=== PATIENT | male | born 1930 | race Caucasian/White ===

== ENCOUNTER 2016-06-17 19:13 | Emergency (ER) | payer OTHER ==
[2016-06-17 19:23] VITALS: RESP 16
--- NOTE | 2016-06-17 19:40 | CPEKG ---
Heart Rate: 94 RR Interval: 638 QRSD Interval: 104 QT Interval: 376 QTC Interval: 471 QRS [place]: -50 T Wave [place]: 7 EKG Severity - ABNORMAL ECG - EKG Impression: ATRIAL FIBRILLATION, V-RATE 69-108 EKG Impression: INCOMPLETE RBBB AND LAFB EKG Impression: BORDERLINE R WAVE PROGRESSION, ANTERIOR LEADS Electronically Signed By: Pam Hernandez 17-Jun-2016 22:29:50
--- NOTE | 2016-06-17 20:02 | EDPHY ---
H & P Time Seen by Provider: 06/17/16 19:41 HPI/ROS: CHIEF COMPLAINT: High blood pressure, chest pain HISTORY OF PRESENT ILLNESS: 85-year-old male with a history of hypertension and coronary artery disease presents with high blood pressure and chest pain. At 1:00 p.m., he checked his blood pressure and it was higher than usual, with a systolic blood pressure in the 160s. He became very concerned because he has a history of extreme hypertension and related retinal hemorrhage. He began worrying about this and then developed a vague left-sided chest discomfort, rated 2/10. Discomfort in his chest lasted until now. No change with exertion and no other associated symptoms. Not similar to prior acute coronary syndrome, which consisted of severe chest pain and diaphoresis. REVIEW OF SYSTEMS: Constitutional: No fever, no chills Eyes: No visual changes ENT: No sore throat Respiratory: No cough, no shortness of breath Gastrointestinal: No nausea, no vomiting, no abdominal pain Genitourinary: No hematuria, no dysuria Musculoskeletal: No leg pain or swelling Skin: No rash Neurological: No headache, no numbness, no weakness Psychiatric: Anxiety Past Medical/Surgical History: Hypertension Coronary artery disease Retinal hemorrhage Atrial fibrillation Social History: No recent alcohol Smoking Status: Never smoked Physical Exam: General Appearance: Alert, pleasant Eyes: Pupils equal and round, no conjunctival pallor or injection ENT, Mouth: Mucous membranes moist Neck: Normal inspection Respiratory: no chest wall tenderness, Lungs are clear to auscultation Cardiovascular: Regular rate and rhythm Gastrointestinal: Abdomen is soft and nontender Neurological: A&O, nonfocal, normal gait Skin: Warm and dry, no rash Extremities: Nontender, no pedal edema Psychiatric: Mood and affect normal Constitutional: Initial Vital Signs Temperature (C) 36.4 C 06/17/16 19:17 Heart Rate 78 06/17/16 19:17 Respiratory Rate 16 06/17/16 19:17 Blood Pressure 168/95 H 06/17/16 19:17 O2 Sat (%) 95 06/17/16 19:17 O2 Delivery Mode Room Air Allergies/Adverse Reactions: No Known Allergies Allergy (Unverified 06/17/16 19:17) Home Medications: Medication Instructions Recorded Atorvastatin Calcium 06/17/16 Carvedilol 06/17/16 Lisinopril 06/17/16 Lumigan 0.01% (*) 06/17/16 Warfarin Sodium 06/17/16 Medical Decision Making - Diagnostics EKG Interpretation: erpreted byMe reveals atrial fibrillation, rate 94, no ST or T segment changes. Imaging: Chest x-ray independently reviewed by me reveals cardiomegaly, no infiltrate or pulmonary edema. ED Course/Re-evaluation: This patient presents with a primary concern of elevated blood pressure. He became quite worried because his blood pressure was slightly high. 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 His systolic blood pressure is usually 110-120 and today it was higher than usual at 160. After his blood pressure was elevated, he began having chest pain, which is really quite mild. Stat EKG reveals no evidence of ischemia or dysrhythmia. I have low clinical suspicion for acute coronary syndrome. However given the advanced age and known history of coronary artery disease, troponin was ordered. Admission was advised for the patient. However he declines and understands that I am unable to tell him if the chest pain is related to a heart attack or not. He is pain free on discharge from the emergency department. He was encouraged to return for recurrent symptoms or any concerns. Differential Diagnosis: Differential diagnosis includes though it is not limited to pneumonia, pneumothorax, pulmonary embolism, aortic dissection, pericarditis, acute coronary syndrome. - Data Points Laboratory Results: Laboratory Results 06/17/16 20:20 06/17/16 20:20 06/17/16 20:20 WBC 5.28 10^3/uL (3.80-9.50) RBC 4.15 L 10^6/uL (4.40-6.38) Hgb 13.4 L g/dL (13.7-17.5) Hct 39.6 L % (40.0-51.0) MCV 95.4 fL (81.5-99.8) MCH 32.3 pg (27.9-34.1) MCHC 33.8 g/dL (32.4-36.7) RDW 15.4 H % (11.5-15.2) Plt Count 123 L 10^3/uL (150-400) MPV 10.8 fL (8.7-11.7) Neut % (Auto) 54.9 % (39.3-74.2) Lymph % (Auto) 26.3 % (15.0-45.0) Mccone % (Auto) 11.6 % (4.5-13.0) Eos % (Auto) 6.1 % (0.6-7.6) Baso % (Auto) 0.9 % (0.3-1.7) Nucleat RBC Rel Count 0.0 % (0.0-0.2) Absolute Neuts (auto) 2.90 10^3/uL (1.70-6.50) Absolute Lymphs (auto) 1.39 10^3/uL (1.00-3.00) Absolute Monos (auto) 0.61 10^3/uL (0.30-0.80) Absolute Eos (auto) 0.32 10^3/uL (0.03-0.40) Absolute Basos (auto) 0.05 10^3/uL (0.02-0.10) Absolute Nucleated RBC 0.00 10^3/uL (0-0.01) Immature Gran % 0.2 % (0.0-1.1) Immature Gran # 0.01 10^3/uL (0.00-0.10) PT 23.7 H SEC (12.0-15.0) INR 2.10 H (0.83-1.16) D-Dimer < 0.27 ug/mLFEU (0.00-0.50) Sodium 141 mEq/L (134-144) Potassium 4.3 mEq/L (3.5-5.2) Chloride 107 mEq/L (97-110) Carbon Dioxide 25 mEq/l (22-31) Anion Gap 9 mEq/L (8-16) BUN 33 H mg/dL (7-23) Creatinine 1.4 H mg/dL (0.7-1.3) Estimated GFR 48 Glucose 132 H mg/dL (70-100) Calcium 9.1 mg/dL (8.5-10.4) Troponin I < 0.012 ng/mL (0-0.034) NT-Pro-B Natriuret Pep 2530 H pg/mL (0-450) Departure - Departure Disposition: Home, Routine, Self-Care Clinical Impression: Chest pain Qualifiers: Qualifier Code: (R07.89) Other chest pain Condition: Good Instructions: Chest Pain (ED), Hypertension (ED) Referrals: Ej Fritz MD [Primary Care Provider] - As per Instructions
--- NOTE | 2016-06-17 20:23 | DX ---
Chest, PA and Lateral History: Chest pain, high blood pressure, history of atrial fibrillation Comparison: March 23, 2008 Findings: There is chronic cardiomegaly with the heart appearing slightly larger than previously. The re is evidence for chronic left-sided coronary artery disease. The pulmonary vascularity is equalized consistent with pulmonary venous hypertension. There are no pleural effusions or pulmonary edema. Th ere is no focal infiltrate or consolidation. There is no pneumothorax or evidence of a fracture. Ther e is a stable mild pectus excavatum deformity. Impression: 1. Chronic compensated cardiomegaly suggesting underlying ischemic cardiomyopathy.
[2016-06-17 20:30] LABS: % IMMATURE GRANULYOCYTES 0.2 % (0.0-1.1); ABSOLUTE IMMATURE GRANULOCYTES 0.01 10^3/uL (0.00-0.10); ADD DIFF? NO; ADD MORPH? NO; ADD SCAN? NO; ATYPICAL LYMPHOCYTE FLAG 40 (0-99); FRAGMENT RBC FLAG 0 (0-99); HEMATOCRIT 39.6 % (40.0-51.0); HEMOGLOBIN 13.4 g/dL (13.7-17.5); LEFT SHIFT FLG 0 (0-99); LIPEMIA HEMOLYSIS FLAG 90 (0-99); MEAN CELL HEMOGLOBIN 32.3 pg (27.9-34.1); MEAN CELL HEMOGLOBIN CONCENTR. 33.8 g/dL (32.4-36.7); MEAN CELL VOLUME 95.4 fL (81.5-99.8); MEAN PLATELET VOLUME 10.8 fL (8.7-11.7); PLATELET CLUMPS FLAG 30 (0-99); PLATELET COUNT 123 10^3/uL (150-400); RED BLOOD CELL COUNT 4.15 10^6/uL (4.40-6.38); RED CELL DISTRIBUTION WIDTH 15.4 % (11.5-15.2)
[2016-06-17 20:42] LABS: PROTIME(PATIENT) 23.7 SEC (12.0-15.0)
[2016-06-17 20:52] LABS: ANION GAP 9 mEq/L (8-16); CALCIUM 9.1 mg/dL (8.5-10.4); CARBON DIOXIDE 25 mEq/l (22-31); CHLORIDE 107 mEq/L (97-110); CREATININE 1.4 mg/dL (0.7-1.3); GLOMERULAR FILTRATION RATE 48; GLUCOSE 132 mg/dL (70-100); POTASSIUM 4.3 mEq/L (3.5-5.2); SODIUM 141 mEq/L (134-144)
[2016-06-17 21:07] LABS: TROPONIN I < 0.012 ng/mL (0-0.034)
[2016-06-17 21:24] VITALS: BP 130/88; PULSE 83; TEMP 97.7; O2SAT 94
--- NOTE | 2016-06-18 10:21 | CPEKG ---
Heart Rate: 78 RR Interval: 769 P-R Interval: 192 QRSD Interval: 82 QT Interval: 440 QTC Interval: 502 QRS [place]: 33 T Wave [place]: 56 EKG Severity - ABNORMAL ECG - EKG Impression: ATRIAL-PACED RHYTHM EKG Impression: PROLONGED QT INTERVAL Electronically Signed By: Jovanni Luque 18-Jun-2016 13:16:25
[2016-06-18 16:18] LABS: % SATURATION 33 % (20-55); TOTAL IRON BINDING CAPACITY 288 ug/dL (260-490)
== END 2016-06-17 21:23 | disposition home or self-care (01) ==
DX: R07.89 Other chest pain (principal); I10 Essential (primary) hypertension; I25.10 Atherosclerotic heart disease of native coronary artery without angina pectoris; Z79.01 Long term (current) use of anticoagulants
CPT/HCPCS: 82607-90

== ENCOUNTER 2016-07-13 12:16 | Emergency (ER) | payer OTHER ==
--- NOTE | 2016-07-13 13:10 | EDPHY ---
H & P Time Seen by Provider: 07/13/16 12:42 HPI/ROS: HPI Something stuck in my throat. 85-year-old male by private vehicle with his knees. This patient reports that he ate a chicken dinner last night. He reports that he got a piece of chicken stuck in his upper to mid esophagus at about this time, 7:00 p.m.. He has been unable to swallow since then. He is unable to swallow his saliva. He has tried water. He gets very uncomfortable when he takes any kind of a fluid bolus and spit back out. ROS: Constitutional: No fever, no chills. No weakness. Eyes: No discharge. No changes in vision. ENT: No sore throat. No nasal congestion or rhinorrhea. Respiratory: No cough. No shortness of breath. Cardiac: No chest pain, no palpitations. Gastrointestinal: No abdominal pain, no vomiting, no diarrhea. Genitourinary: No hematuria. No dysuria or increased frequency with urination. Musculoskeletal: No back pain. No neck pain. No myalgias or arthralgias. Skin: No rashes. Neurological: No headache. No focal weakness or altered sensation. Past medical history: Hypertension,, coronary artery disease with stents x3. Dr. Ej Fritz is his primary care physician. Dr. Teresa Reagan is his computer installation engineer. Social history: He lives by himself. He is currently here with his knees. Physical Exam: General Appearance: Alert, he appears uncomfortable. Spitting his secretions into a bag. This patient is responding to questions appropriately and in full sentences. This patient appears well-hydrated and well-nourished. Eyes: Pupils equal and round no pallor or injection. No lid edema, erythema or injection. ENT, Mouth: Mucous membranes are moist. The pharyngeal tissues are unremarkable. No edema or swelling. No asymmetry suggestive of abscess. No erythema or exudates. No stridor on auscultation of his neck. Respiratory: There are no retractions, lungs are clear to auscultation with good air movement bilaterally. Cardiovascular: Regular rate and rhythm. No murmur. Neurological: Motor sensory function is grossly intact. Cranial nerves are normal. Gait is normal. Skin: Warm and dry, no rashes. Musculoskeletal: Neck is supple and nontender. Extremities are symmetrical. All joints range without pain or impingement. Psychiatric: No agitation. No depression. Database: EKG: Imaging: Procedures: Emergency department course: Gastroenterology paged at 1:00 p.m.. Discussed endoscopy for removal of esophageal foreign body with patient and his knees. IV was placed. He was started on IV normal saline at a rate of 125 cc/hour. He was initially given 0.5 mg of IV Ativan. This will be repeated x1 based on his tolerance. 1:15 p.m., spoke with rope walker, Dr. Ej Almeida. Plan is to take the patient to endoscopy suite in about an hour. 1:50 p.m., patient re-evaluated. He states that he is feeling much better. He was given a carbonated beverage. He is able to swallow this without difficulty. He denies any symptoms. And states that he feels great. Dr. Ej Almeida notified. Plan will be to discharge him to home. 2:00 p.m., patient continues to do very well. Completely asymptomatic. He feels comfortable going home with his niece and I feel he is safe for discharge. Esophageal food impaction precautions discussed with him. He was instructed to follow up with his primary care physician who could arrange for gastroenterology follow-up as needed. He is in agreement with this plan. All of his questions were answered. Return to emergency department precautions reviewed. He was discharged in good condition. Differential Diagnosis: The differential diagnosis on this patient includes but is not limited to esophageal food bolus, esophageal spasm. This represents a partial list of diagnoses considered. These considerations are based on history, physical exam , past history, reassessment and diagnostic testing. Smoking Status: Never smoked Constitutional: Initial Vital Signs Temperature (C) 36.6 C 07/13/16 12:24 Heart Rate 97 07/13/16 12:24 Respiratory Rate 17 07/13/16 12:24 Blood Pressure 145/95 H 07/13/16 12:24 O2 Sat (%) 91 L 07/13/16 12:24 O2 Delivery Mode Room Air Allergies/Adverse Reactions: No Known Allergies Allergy (Unverified 06/17/16 19:17) Home Medications: Medication Instructions Recorded Atorvastatin Calcium 06/17/16 Carvedilol 06/17/16 Lisinopril 06/17/16 Lumigan 0.01% (*) 06/17/16 Warfarin Sodium 06/17/16 Medical Decision Making - Data Points Medications Given: Discontinued Medications Lorazepam (Ativan Injection) 0.5 mg IVP EDNOW ONE Stop: 07/13/16 13:18 Last Admin: 07/13/16 13:58 Dose: 0.5 mg Departure - Departure Disposition: Home, Routine, Self-Care Clinical Impression: Impacted esophageal foreign body Condition: Good Instructions: Esophageal Foreign Body (ED) Additional Instructions: Read and follow provided instructions. Follow-up with your primary care physician , Dr. Ej Fritz, in 1-2 days for re-evaluation. He can refer you to a rope walker as needed. Return to the emergency department for return of symptoms or other serious concerns. Referrals: Ej Fritz MD [Primary Care Provider] - As per Instructions
[2016-07-13] MEDS ORDERED: LORazepam 2 MG/ML INJ IVP ONE (13:17)
[2016-07-13 14:26] VITALS: BP 128/78; PULSE 70; RESP 14; TEMP 98.4; O2SAT 94
== END 2016-07-13 14:26 | disposition home or self-care (01) ==
DX: T18.128A Food in esophagus causing other injury, initial encounter (principal); I10 Essential (primary) hypertension; I25.10 Atherosclerotic heart disease of native coronary artery without angina pectoris; Z79.01 Long term (current) use of anticoagulants; Z95.5 Presence of coronary angioplasty implant and graft; X58.XXXA Exposure to other specified factors, initial encounter
CPT/HCPCS: 96374

== ENCOUNTER → 2016-11-21 | Outpatient (CLI) | payer OTHER | LOC: BHFA 15:30 | PROVIDERS: ATTEND Internal Medicine Cardiovascular Disease | DX: I35.2 Nonrheumatic aortic (valve) stenosis with insufficiency (principal); I71.6 Thoracoabdominal aortic aneurysm, without rupture; I25.10 Atherosclerotic heart disease of native coronary artery without angina pectoris ==

== ENCOUNTER → 2017-01-09 | Outpatient (CLI) | payer OTHER | LOC: BHFA 10:15 | PROVIDERS: ATTEND Internal Medicine Cardiovascular Disease | DX: I50.9 Heart failure, unspecified (principal); I08.0 Rheumatic disorders of both mitral and aortic valves; I07.1 Rheumatic tricuspid insufficiency; I25.10 Atherosclerotic heart disease of native coronary artery without angina pectoris; I48.91 Unspecified atrial fibrillation; I10 Essential (primary) hypertension; N28.9 Disorder of kidney and ureter, unspecified; E78.5 Hyperlipidemia, unspecified ==

== ENCOUNTER → 2018-02-20 | Outpatient (CLI) | payer OTHER | LOC: BHFA 10:45 | PROVIDERS: ATTEND Internal Medicine Cardiovascular Disease | DX: I48.91 Unspecified atrial fibrillation (principal) ==

== ENCOUNTER 2018-09-18 11:42 | Inpatient (IN) | payer OTHER, MEDICARE ==
[2018-09-18] MEDS ORDERED: ACETAMINOPHEN 325 MG TAB PO PRN (13:35)
[2018-09-18] MEDS ORDERED: ONDANSETRON 4 MG/2 ML VIAL IVP PRN (13:35)
[2018-09-18] MEDS ORDERED: ONDANSETRON DISINTEGRATING 4 MG TAB PO PRN (13:35)
[2018-09-18] MEDS ORDERED: ALTEPLASE 2 MG VIAL IVP PRN (14:28)
[2018-09-18 14:37] LABS: PLATELET COUNT 122 10^3/uL (150-400)
--- NOTE | 2018-09-18 15:56 | ECHO ---
[email or web address] [address] [address] Main: [phone] Echocardiography Examination Transthoracic Name: MELE BAUTISTA MR#: [id number] Study Date: 09/18/2018 Study Time: 02:00 PM Date of : 1930 Age: 87 year(s) Height: 177.8 cm (70 in.) Weight: 62.6 kg (138 lb.) BSA: 1.78 m2 Gender: Male Examination: Echo Contrast: Image Quality: Rhythm: Atrial fibrillation Heart Rate: 77 bpm BP: 104 mmHg/77 mmHg Indication: CHF Exacerbation Procedure Staff Referring Physician: Title Closer: Lemuel Terrazas RDCS Reading Physician: Donovan Jain MD Requesting Provider: Ordering Physician: Elva Garzon Indication: CHF Exacerbation Measurements Chambers AV/MV Label Value Normal Value Label Value Normal Value LVOT Vmax 0.6 m/s (0.7m/s - 1.1m/s) AR (ERO) 0.26 cm2 LVOTd 2.1 cm (1.9cm - 2.1cm) AR PHT 0.74 s LVOT VTI 13.8 cm (18cm - 22cm) AR PHT 735 ms LVDd, MM 5.5 cm (4.2cm - 5.9cm) AR PISA Radius 0.8 cm LVDd, 2D 4.1 cm (4.2cm - 5.9cm) AR Reg. Fraction 131 % LVDs, MM 4.3 cm (2cm - 3.8cm) AR Reg. Volume 63 ml LVDs, 2D 3.4 cm (2.1cm - 4cm) AR Vmax 4.73 m/s IVSd, MM 1.2 cm (0.6cm - 0.9cm) AR VTI 241 cm IVSd, 2D 1 cm (0.6cm - 1.1cm) AV PGmax 7 mmHg LVPWd, MM 1.3 cm (0.6cm - 1cm) AV PGmean 4 mmHg LVPWd, 2D 1.2 cm (0.6cm - 1cm) AV Vmax 1.32 m/s LVEF, BP 43 % (55% - 70%) CATHLEEN (Vmax) 1.6 cm2 LVEF, 2D 37 % (54% - 74%) CATHLEEN (VTI) 1.8 cm2 LVOT PGmean 1 mmHg MV E Vmax 0.66 m/s LVOT Vmean 0.43 m/s MV E/E' lateral 5.7 LA Volume, BP 129 ml (18ml - 58ml) MV E/E' septal 9 (0.45 - 1.25) LADs, 2D 4.9 cm (3cm - 4cm) MV E' septal 0.07 m/s LAESV index, BP 72.5 ml/m2 MV VTI 15.4 cm Additional Vessels MVA D (continuity eq.) 3.1 cm2 Patient: MELE BAUTISTA Study Date: 09/18/2018 Page 1 of 3 02:00 PM Label Value Normal Value MV PGmax 2 mmHg AoRoot, MM 2.8 cm (2.2cm - 3.7cm) MV PGmean 1 mmHg MV [place]oh 3.6 cm MR Reg. Volume 24 ml MR Reg. Fraction 15 % MR Vmax 5.08 m/s MR VTI 174 cm MR (ERO) 0.14 cm2 MV E' lateral 0.12 m/s MR PISA Radius 0.6 cm MV E/E' mean 6.95 MR PISA Alias V. 30.8 cm/s MV E' mean 0.1 m/s TV/PV Label Value Normal Value RA Pressure 15 mmHg RVSP 53 mmHg TR Pmax 38 mmHg TR Vmax 3.09 m/s PV PGmax 2 mmHg PV Vmax, Caliper 0.75 m/s (0.6m/s - 0.9m/s) Conclusions (1) Left ventricular systolic ejection fraction was moderately reduced (35%) - mild concentric LVH - pateint was in atrial fibrillation/flutter over course of this study (2) Mild RV dilation (3) Severe biatrial dilation (4) Mild to moderate MR with mild valve thickening (5) Trileaflet aortic valve with moderate AI and mild aortic stenosis, and moderate sclerosis (6) Severe TR - RVSP was 53 mm Hg (7) Ascending aorta was 2.8 cm (8) No pericardial effusion (9) In comparison to prior echo from Feb 2018, similar LVEF was noted, unchanged mitral regurgitation, unchanged tricuspid regurgitation, similar RVSP elevation was noted (previously 65 mm Hg). Findings Left Ventricle: There is a flattened ventricular septum consistent with volume/pressure overload.. Left ventricle is normal in size. Moderately reduced systolic left ventricular function. The EF is visually estimated to be 35 %. EF range is estimated at 35 % - 45 %. There is mild concentric left ventricular hypertrophy. Unable to assess Diastolic Dysfunction due to atrial fibrillation/a flutter. Right Ventricle: Mildly dilated right ventricle. Left Atrium: The left atrium is severely dilated. Right Atrium: The right atrium is severely dilated. Mitral Valve: Mild to moderate mitral regurgitation. There is mild mitral thickening. Patient: MELE BAUTISTA Study Date: 09/18/2018 Page 2 of 3 02:00 PM Aortic Valve: Moderate aortic regurgitation is present. There is mild aortic stenosis. Aortic leaflets exhibit moderate calcification. The aortic valve is trileaflet. Tricuspid Valve: Severe tricuspid regurgitation. Right Ventricular systolic pressure is measured at 53 mmHg. Pulmonary artery pressure moderately increased. Pulmonic Valve: Pulmonic leaflets are structurally normal. Mild pulmonic valve regurgitation is present. Aorta: The prior exam of 02/26 the Ao measures 3.9cm. The aortic root size in M-mode measures 2.8 cm. Aorta Measurements AoRoot, MM is 2.8 cm. IVC: The inferior vena cava is dilated. Pericardium: No pericardial effusion. There is a left pleural effusion. Exam Details Procedure Ordered: Echo (No Signature Object) Patient: MLEE BAUTISTA Study Date: 09/18/2018 Page 3 of 3 02:00 PM [id number]
[2018-09-18] MEDS: OMEGA-3 FATTY ACIDS 1,000 MG CAP PO SCH (18:31)
[2018-09-18 18:59] LABS: INR 1.85 (0.83-1.16); PROTIME(PATIENT) 20.5 SEC (12.0-15.0)
[2018-09-18] MEDS ORDERED: DOBUTamine/DEXTROSE 250 ML IV SCH (19:00)
[2018-09-18] MEDS: BIMATOPROST 0.01% 2.5 ML OPHT.BTL EACHEYE SCH (20:40)
[2018-09-18] MEDS ORDERED: SILDENAFIL CITRATE 20 MG TAB PO SCH (21:00)
[2018-09-18] MEDS ORDERED: WARFARIN SODIUM 5 MG TAB PO SCH (21:00)
[2018-09-18] MEDS: CARVEDILOL 3.125 MG TAB PO SCH (21:45)
[2018-09-19] MEDS: OMEGA-3 FATTY ACIDS 1,000 MG CAP PO SCH (08:13)
[2018-09-19] MEDS: CHOLECALCIFEROL VIT D3 2,000 UNITS TAB/CAP PO SCH (08:13)
[2018-09-19] MEDS: ASPIRIN EC 81 MG TAB PO SCH (08:13)
[2018-09-19] MEDS: CARVEDILOL 3.125 MG TAB PO SCH ×3 (08:13→21:50)
[2018-09-19] MEDS ORDERED: LISINOPRIL 2.5 MG TAB PO SCH (09:00)
--- NOTE | 2018-09-19 15:17 | ASMTCMCOM ---
CM Note CM Note Notes: Reviewed chart, pt admitted from MD's office for Afib and sob. Pt lives alone in a condo but does have niece, nephew and friends that look in on him. CM spoke with pt about dc plan, PT/OT recommend SNF vs HC. Pt will consider options but wants to work with therapies a bit more, before making a decision. DC Plan: SNF vs HC Date Signed: 09/19/2018 03:16 PM Electronically Signed By:Tatiana Casas RN
--- NOTE | 2018-09-19 15:24 | SOAPPROG ---
SOAP Progress Note Assessment/Plan: Assessment: Systolic heart failure. Improved on low dose dobutamine. Plan: Increase dobutamine ot 4 mcg/kg/min. Add entresto. folow closely for hypotension. 09/19/18 15:22 Subjective: Doing better. DId not have oxygten last night and did not sleep well. [place] wek in the morning, better now. Objective: Vital Signs Temp Pulse Resp BP Pulse Ox 98.8 F 83 18 118/63 98 09/19/18 11:08 09/19/18 11:08 09/19/18 11:08 09/19/18 11:08 09/19/18 11:08 Laboratory Results 09/18/18 13:45 09/18/18 13:45 09/18/18 09/19/18 09/20/18 05:59 05:59 05:59 Intake Total 300 Balance 300 PT 20.5 SEC (12.0-15.0) H 09/18/18 18:25 INR 1.85 (0.83-1.16) H 09/18/18 18:25 Lungs clear. BP improve on very low dose dobutamine. ICD10 Worksheet Patient Problems: Problems Problem Status Onset CHF (congestive heart failure), NYHA class III Acute Pulmonary hypertension Acute - ICD10 Problem Qualifiers (1) CHF (congestive heart failure), NYHA class III (2) Pulmonary hypertension
[2018-09-19] MEDS: SILDENAFIL CITRATE 20 MG TAB PO SCH (18:37)
[2018-09-19] MEDS: BIMATOPROST 0.01% 2.5 ML OPHT.BTL EACHEYE SCH (21:50)
[2018-09-19] MEDS: WARFARIN SODIUM 5 MG TAB PO SCH (21:50)
[2018-09-19] MEDS: SACUBITRIL/VALSARTAN 24/26MG 1 EA TAB PO SCH (21:50)
--- NOTE | 2018-09-20 07:04 | CPEKG ---
Test Reason : OPEN Blood Pressure : / mmHG Vent. Rate : 094 BPM Atrial Rate : 152 BPM P-R Int : 116 ms QRS Dur : 115 ms QT Int : 386 ms P-R-T Axes : 000 -26 004 degrees QTc Int : 483 ms Atrial fibrillation Incomplete RBBB and LAFB Probable anterior infarct, age indeterminate Confirmed by Taco Ballesteros ([id number]) on 09/20/2018 7:04:15 AM Referred By: Ej Fritz Confirmed By:Taco Ballesteros
[2018-09-20] MEDS ORDERED: CARVEDILOL 3.125 MG TAB PO SCH (08:00)
--- NOTE | 2018-09-20 08:08 | GHP ---
[f rep st] HISTORY AND PHYSICAL DATE OF ADMISSION: 09/18/2018 REASON FOR ADMISSION: Chronic congestive heart failure with acute exacerbation of systolic heart failure, atrial fibrillation, weakness, weight loss. HISTORY: The patient is an 87-year-old male who presents with progressive weakness, shortness of breath in the setting of chronic systolic congestive heart failure. He lives at home alone and his weakness had got to the point that he is not able to get out to go to the store or to eat. He has a niece who is coming to help him periodically. PAST MEDICAL HISTORY: Significant for atrial fibrillation, pulmonary artery hypertension, and osteoarthritis. He also has hypogonadism. History of essential hypertension, conductive hearing loss, coronary atherosclerosis, elevated homocystine, poor balance, sleep apnea, and atrial fibrillation. He states he is able to walk about 50 yards before having to stop because of shortness of breath. He reports some left leg pain. His lifestyle has changed substantially with the shortness of breath. CURRENT MEDICATIONS: 1. Carvedilol 3.125 mg 3 times a day. 2. Niacin 500 mg once a day. 3. Aspirin 81 mg daily. 4. Fish oil 2400 mg daily. 5. Glucosamine 750 mg daily. 6. Vitamin D3 2000 units daily. 7. He uses Juice Plus Fibre. 8. Coumadin, dosages fluctuating based on need. 9. Sildenafil 20 mg 2 tablets twice daily. 10. Lisinopril 2.5 mg once daily. 11. Vitamin K2. REVIEW OF SYSTEMS: consistent with present illness is otherwise unremarkable. PHYSICAL EXAM: VITAL SIGNS: Blood pressure 92/70, pulse is 91 beats per minute. Weight 142 kg. Oxygen saturation 91% on room air. GENERAL: He is alert, appropriate, seems a little bit fatigued. HEENT: He has decreased vision. Pupils are reactive. Throat was normal. NECK: Without masses. LUNGS : Clear to auscultation. HEART: Regular rate and rhythm. ABDOMEN: Irregularly irregular rhythm. EXTREMITIES: He has no peripheral edema. Pulses are present but diminished distally. IMPRESSION: Congestive heart failure with weakness and hypotension, atrial fibrillation. PLAN: We discussed options for management. We will admit to the hospital for further evaluation and treatment, as he seemed to have a deterioration of his overall condition over the last 2 months, and he is getting to the point that he cannot live independently because he needs to be stronger. /[id number]/MODL MTDD
[2018-09-20] MEDS: CARVEDILOL 6.25 MG TAB PO SCH ×2 (08:09→18:17)
[2018-09-20] MEDS: SILDENAFIL CITRATE 20 MG TAB PO SCH ×3 (08:09→18:17)
[2018-09-20] MEDS: ASPIRIN EC 81 MG TAB PO SCH (09:47)
[2018-09-20] MEDS: OMEGA-3 FATTY ACIDS 1,000 MG CAP PO SCH (09:47)
[2018-09-20] MEDS: SACUBITRIL/VALSARTAN 24/26MG 1 EA TAB PO SCH ×2 (09:47→23:38)
[2018-09-20] MEDS: CHOLECALCIFEROL VIT D3 2,000 UNITS TAB/CAP PO SCH (09:47)
[2018-09-20] MEDS: DOBUTamine/DEXTROSE 250 ML IV SCH (09:47)
--- NOTE | 2018-09-20 09:56 | SOAPPROG ---
SOAP Progress Note Assessment/Plan: Assessment: Systolic heart failure. Improved on low dose dobutamine. Labile blood pressure. Plan: Increase dobutamine ot 4 mcg/kg/min. Add entresto. folow closely for hypotension. Increase carvedalol to reduce heart rate. Encourage fluid intake. 09/19/18 15:22 09/20/18 09:55 09/20/18 09:55 Subjective: Feeling OK. Had a large amount of urine production last night. Objective: Vital Signs Temp Pulse Resp BP Pulse Ox 97.7 F 83 17 85/45 L 97 09/20/18 07:16 09/20/18 09:32 09/20/18 07:16 09/20/18 09:32 09/20/18 07:16 Laboratory Results 09/18/18 13:45 09/18/18 13:45 09/19/18 09/20/18 09/21/18 05:59 05:59 05:59 Intake Total 300 730 Balance 300 730 PT 20.5 SEC (12.0-15.0) H 09/18/18 18:25 INR 1.85 (0.83-1.16) H 09/18/18 18:25 Neck veins flat, COR irregular rhythm with a-fib and normal but a bit too fast rate. Lungs clear no edema. ICD10 Worksheet Patient Problems: Problems Problem Status Onset CHF (congestive heart failure), NYHA class III Acute Pulmonary hypertension Acute - ICD10 Problem Qualifiers (1) CHF (congestive heart failure), NYHA class III (2) Pulmonary hypertension
--- NOTE | 2018-09-20 10:07 | PDMN ---
Medical Necessity Medical necessity: [facility] M190 Heart Failure, A-2 days: 87 yo w/ acute exacerbation of sCHF, afib, weakness and weight loss. Pt hypotensive this morning SBP 80s, creat 1.4. PICC placement, pt placed on dobutamine gtt. Meets [facility] IP criteria for HF w/ hemodynamic instability, increased creatinine and 'other condition, tx or monitoring requiring ip admission' - dobutamine gtt requiring titration. Hx afib, pulm artery HTN, osteoarthritis, HTN.
--- NOTE | 2018-09-20 14:43 | ASMTCMCOM ---
CM Note CM Note Notes: CM met w/ pt and his riya niece and matty nephew. Therapies are continuing to recommend SNF. Riya does not feel comfortable w/ pt returning home. Pt has 3 flights of stairs and lives by himself in an apartment. CM provided pt and family w/ senior blue book. They would like their first choice to be [facility]. Second choice is [facility]. Referrals sent to both. Family will go tour. CM to follow. Plan: SNF Date Signed: 09/20/2018 02:42 PM Electronically Signed By:MERY Yanez
[2018-09-20] MEDS ORDERED: POLYETHYLENE GLYCOL 3350 17 GM PKT PO PRN (19:57)
[2018-09-20] MEDS ORDERED: BISACODYL 10 MG SUPP PR PRN (19:57)
[2018-09-20] MEDS ORDERED: LACTULOSE 20 GM/30 ML UDCUP PO PRN (19:57)
[2018-09-20] MEDS ORDERED: MAGNESIUM HYDROXIDE 30 ML UDCUP PO PRN (19:57)
[2018-09-20 20:51] LABS: INR 3.99 (0.83-1.16); PROTIME(PATIENT) 36.8 SEC (12.0-15.0)
[2018-09-20] MEDS: WARFARIN SODIUM 5 MG TAB PO SCH (21:24)
[2018-09-20] MEDS: SENNOSIDES/DOCUSATE SODIUM TAB PO SCH (21:30)
[2018-09-20] MEDS: BIMATOPROST 0.01% 2.5 ML OPHT.BTL EACHEYE SCH (21:30)
[2018-09-21 06:52] LABS: INR 3.83 (0.83-1.16); PROTIME(PATIENT) 35.7 SEC (12.0-15.0)
[2018-09-21] MEDS: CHOLECALCIFEROL VIT D3 2,000 UNITS TAB/CAP PO SCH (09:17)
[2018-09-21] MEDS: SACUBITRIL/VALSARTAN 24/26MG 1 EA TAB PO SCH ×2 (09:17→21:35)
[2018-09-21] MEDS: OMEGA-3 FATTY ACIDS 1,000 MG CAP PO SCH (09:18)
[2018-09-21] MEDS: ASPIRIN EC 81 MG TAB PO SCH (09:18)
[2018-09-21] MEDS: SENNOSIDES/DOCUSATE SODIUM TAB PO SCH ×2 (09:18→23:04)
[2018-09-21] MEDS: SILDENAFIL CITRATE 20 MG TAB PO SCH ×3 (09:18→19:02)
[2018-09-21] MEDS: CARVEDILOL 6.25 MG TAB PO SCH ×5 (09:18→19:02)
[2018-09-21] MEDS ORDERED: LR 1,000 ML IV ONE (11:37)
--- NOTE | 2018-09-21 12:11 | ASMTCMCOM ---
CM Note CM Note Notes: Gregory from [facility] stopped by and evaluated pt. [facility] has accepted. CM notified pts christiane Ritter (P#:[phone]) of the acceptance. CM spoke to Maribell at Dr. Fritz's office and notified her of what the plan will be - to d/c to SNF. CM to follow. Plan: [facility] Date Signed: 09/21/2018 12:10 PM Electronically Signed By:MERY Yanez
[2018-09-21] MEDS ORDERED: WARFARIN SODIUM 3 MG TAB PO SCH (16:00)
[2018-09-21] MEDS: DOBUTamine/DEXTROSE 250 ML IV SCH (17:08)
--- NOTE | 2018-09-21 18:46 | SOAPPROG ---
SOAP Progress Note Assessment/Plan: Assessment: Systolic heart failure. Improved on low dose dobutamine. Labile blood pressure. He tends to be somewhat hypovolemic despite his heart failure. Plan: Continue medications. Will bolus with fluid if needed to allow kupward titration of medications so he will have a chance of doing better as an out patient 09/19/18 15:22 09/20/18 09:55 09/20/18 09:55 09/21/18 18:45 Subjective: Having some low blood pressure today. Objective: Vital Signs Temp Pulse Resp BP Pulse Ox 97.3 F 82 14 116/73 98 09/21/18 15:54 09/21/18 15:54 09/21/18 15:54 09/21/18 17:15 09/21/18 15:54 Laboratory Results 09/20/18 19:00 09/20/18 19:00 09/20/18 09/21/18 09/22/18 05:59 05:59 05:59 Intake Total 476 277 8516 Output Total 300 200 Balance 322 527 6995 PT 35.7 SEC (12.0-15.0) H 09/21/18 06:35 INR 3.83 (0.83-1.16) H 09/21/18 06:35 Blood pressure has responded to a flluid bolus. His neck veins have been low. NO edema. ICD10 Worksheet Patient Problems: Problems Problem Status Onset CHF (congestive heart failure), NYHA class III Acute Chronic Disease Mgmt/Transitional Care Acute Pulmonary hypertension Acute - ICD10 Problem Qualifiers (1) CHF (congestive heart failure), NYHA class III (2) Pulmonary hypertension
[2018-09-21] MEDS: BIMATOPROST 0.01% 2.5 ML OPHT.BTL EACHEYE SCH (21:36)
[2018-09-21] MEDS: LR 1,000 ML IV SCH (21:36)
[2018-09-22] MEDS: LR 1,000 ML IV SCH ×2 (05:29→15:10)
[2018-09-22] MEDS: SILDENAFIL CITRATE 20 MG TAB PO SCH ×2 (08:28→17:34)
[2018-09-22] MEDS: OMEGA-3 FATTY ACIDS 1,000 MG CAP PO SCH (08:29)
[2018-09-22] MEDS: CARVEDILOL 6.25 MG TAB PO SCH ×3 (08:29→18:20)
[2018-09-22] MEDS: CHOLECALCIFEROL VIT D3 2,000 UNITS TAB/CAP PO SCH (08:29)
[2018-09-22] MEDS: ASPIRIN EC 81 MG TAB PO SCH (08:29)
[2018-09-22] MEDS ORDERED: SILDENAFIL CITRATE 20 MG TAB PO SCH (08:49)
--- NOTE | 2018-09-22 08:51 | SOAPPROG ---
SOAP Progress Note Assessment/Plan: Assessment: Systolic heart failure. Improved on low dose dobutamine. Labile blood pressure. He tends to be somewhat hypovolemic despite his heart failure. Now that BP is improved, will agressively increase heart failure medications and then wean dobutamine. Plan: Continue medications. Reduce fluid rate. Increase sildenafil as it seems that PAH is a big part of his issue. 09/19/18 15:22 09/20/18 09:55 09/20/18 09:55 09/21/18 18:45 09/22/18 08:50 Subjective: Feeling dramatically better with increased blood pressure after fluid replacement. Objective: Vital Signs Temp Pulse Resp BP Pulse Ox 97.4 F 93 14 142/94 H 99 09/22/18 07:09 09/22/18 07:09 09/22/18 07:09 09/22/18 07:09 09/22/18 07:09 Laboratory Results 09/20/18 19:00 09/20/18 19:00 09/21/18 09/22/18 09/23/18 05:59 05:59 05:59 Intake Total 629 3195 Output Total 300 700 190 Balance 329 2495 -190 PT 35.7 SEC (12.0-15.0) H 09/21/18 06:35 INR 3.83 (0.83-1.16) H 09/21/18 06:35 Lungs clear to asc. COR a-fib with rate 95. Blood pressure greatly improved. ICD10 Worksheet Patient Problems: Problems Problem Status Onset CHF (congestive heart failure), NYHA class III Acute Chronic Disease Mgmt/Transitional Care Acute Pulmonary hypertension Acute - ICD10 Problem Qualifiers (1) CHF (congestive heart failure), NYHA class III (2) Pulmonary hypertension
[2018-09-22] MEDS: SENNOSIDES/DOCUSATE SODIUM TAB PO SCH (08:58)
[2018-09-22] MEDS: SACUBITRIL/VALSARTAN 24/26MG 1 EA TAB PO SCH (09:15)
[2018-09-22] MEDS ORDERED: LR 250 ML IV ONE (10:30)
[2018-09-22] MEDS: DOBUTamine/DEXTROSE 250 ML IV SCH (18:22)
[2018-09-22] MEDS: BIMATOPROST 0.01% 2.5 ML OPHT.BTL EACHEYE SCH (20:20)
[2018-09-23] MEDS: LR 1,000 ML IV SCH ×2 (01:12→11:15)
[2018-09-23 07:05] LABS: INR 2.74 (0.83-1.16); PROTIME(PATIENT) 27.6 SEC (12.0-15.0)
--- NOTE | 2018-09-23 08:51 | SOAPPROG ---
SOAP Progress Note Assessment/Plan: Assessment: Systolic heart failure. Improved on low dose dobutamine. Labile blood pressure. He tends to be somewhat hypovolemic despite his heart failure. Now that BP is improved, will adjust heart failure medications and then wean dobutamine. Plan: Continue medications. Add STEPHON and increase carvedalol. Reduce fluid rate. Will wean dobutamine today. Follow BP and symptoms closely. To SNF tomorrow if stable. 09/19/18 15:22 09/20/18 09:55 09/20/18 09:55 09/21/18 18:45 09/22/18 08:50 09/23/18 08:50 Subjective: Blood pressure much better after fluid challenge. we have stopped Entresto due to hypotension. This was an issue as an outpatient also. He is saturating well. No SOB. Energy better. Objective: Vital Signs Temp Pulse Resp BP Pulse Ox 97.7 F 87 18 165/108 H 96 09/23/18 08:00 09/23/18 08:00 09/23/18 08:00 09/23/18 08:00 09/23/18 08:00 Laboratory Results 09/20/18 19:00 09/20/18 19:00 09/22/18 09/23/18 09/24/18 05:59 05:59 05:59 Intake Total 3195 3180 Output Total 700 1190 250 Balance 2495 1989 - PT 27.6 SEC (12.0-15.0) H 09/23/18 05:35 INR 2.74 (0.83-1.16) H 09/23/18 05:35 Neck veins are a bit alvarado today. Lungs remain clear. Ne leg edema. Cor ireg rhythm with improved rate at 85 ICD10 Worksheet Patient Problems: Problems Problem Status Onset CHF (congestive heart failure), NYHA class III Acute Chronic Disease Mgmt/Transitional Care Acute Pulmonary hypertension Acute - ICD10 Problem Qualifiers (1) CHF (congestive heart failure), NYHA class III (2) Pulmonary hypertension
[2018-09-23] MEDS: ASPIRIN EC 81 MG TAB PO SCH (09:23)
[2018-09-23] MEDS: OMEGA-3 FATTY ACIDS 1,000 MG CAP PO SCH (09:29)
[2018-09-23] MEDS: CHOLECALCIFEROL VIT D3 2,000 UNITS TAB/CAP PO SCH (09:29)
[2018-09-23] MEDS: SILDENAFIL CITRATE 20 MG TAB PO SCH ×3 (11:16→18:14)
[2018-09-23] MEDS: CARVEDILOL 6.25 MG TAB PO SCH ×3 (11:37→18:48)
--- NOTE | 2018-09-23 11:38 | ASMTCMCOM ---
CM Note CM Note Notes: 09/23/2018 Case Management Note Reviewed chart. Updated [facility] via all scripts. Case Management d/c poc: [facility] SNF rehab Case Management to follow. Date Signed: 09/23/2018 11:37 AM Electronically Signed By:Asia Patel RN
[2018-09-23] MEDS: LISINOPRIL 5 MG TAB PO SCH (13:02)
[2018-09-23] MEDS ORDERED: WARFARIN SODIUM 2.5 MG TAB PO SCH (21:00)
[2018-09-23] MEDS: BIMATOPROST 0.01% 2.5 ML OPHT.BTL EACHEYE SCH (22:52)
[2018-09-24 04:40] LABS: INR 2.23 (0.83-1.16); PROTIME(PATIENT) 23.6 SEC (12.0-15.0)
[2018-09-24 04:44] LABS: PLATELET COUNT 108 10^3/uL (150-400)
[2018-09-24] MEDS: LISINOPRIL 5 MG TAB PO SCH (08:25)
[2018-09-24] MEDS: SILDENAFIL CITRATE 20 MG TAB PO SCH ×2 (08:26→12:19)
[2018-09-24] MEDS: CHOLECALCIFEROL VIT D3 2,000 UNITS TAB/CAP PO SCH (08:26)
[2018-09-24] MEDS: OMEGA-3 FATTY ACIDS 1,000 MG CAP PO SCH (08:27)
[2018-09-24] MEDS: ASPIRIN EC 81 MG TAB PO SCH (08:27)
[2018-09-24] MEDS: CARVEDILOL 6.25 MG TAB PO SCH (08:28)
--- NOTE | 2018-09-24 09:07 | SOAPPROG ---
SOAP Progress Note Assessment/Plan: Assessment: Plan: 09/24/18 09:11 CHF: feeling better and feels ready for transfer to SNF rehab. BP better with fluids. Tolerating lisinopril, carvedilol Anemia: mild, likely dilutional Elevated creatinine: due to dehydration. Has normalized with fluids yesterday Pulmonary hypertension: on sildenafil Dispo: d/c to [facility] today unless I hear otherwise from RN that he is too weak to go. 09/24/18 09:15 Subjective: Feels well today and would like to go rehab. BP has been stable off dobutamine. He is trying to increase his fluid intake as best he can. RN is somewhat concerned about weakness from her assessment of him a few days ago, but hasn't assessed that today. Objective: Vital Signs Temp Pulse Resp BP Pulse Ox 36.4 C 81 23 H 112/69 95 09/24/18 07:55 09/24/18 08:28 09/24/18 07:55 09/24/18 08:28 09/24/18 07:55 Laboratory Results 09/24/18 03:32 09/24/18 03:32 09/23/18 09/24/18 09/25/18 05:59 05:59 05:59 Intake Total 3180 1000 Output Total 1190 650 225 Balance 1989 350 -225 PT 23.6 SEC (12.0-15.0) H 09/24/18 03:32 INR 2.23 (0.83-1.16) H 09/24/18 03:32 General: awake, alert, pleasant Lungs: clear except for decreased breath sounds L base CV: RRR no murmur Abdomen: soft, NT Extremities: no edema ICD10 Worksheet Patient Problems: Problems Problem Status Onset CHF (congestive heart failure), NYHA class III Acute Chronic Disease Mgmt/Transitional Care Acute Pulmonary hypertension Acute
--- NOTE | 2018-09-24 09:25 | PDIAF ---
- Diagnosis Code Status: Do Not Resuscitate - Medication Management Discharge Medications: electronically signed and located in the Home Medication List. - Orders Services needed: Physical Therapy, Occupational Therapy Diet Recommendation: no restrictions on diet - Labs/Radiology PT/INR Date: 09/28/18 - Follow Up Care Current Providers and Referrals: Ej Fritz MD [Medical Doctor] -
--- NOTE | 2018-09-24 10:23 | ASMTDCNOTE ---
Case Management Discharge Discharge Order Complete? Answers: Yes Patient to Obtain Answers: Other Notes: SNF Medications Transportation Arranged Answers: Other Notes: [facility] Transport will Pick (Date 09/24/2018 12:00 PM & Time) Faxed Final Orders Answers: Yes Agency/Facility Transfer Answers: Yes Report Printed & Faxed to Receiving Agency Family Notified Answers: Yes Notes: CM called niece Discharge Comments Notes: Pt to discharge to [facility]. RN given number for RN report. Pt stated he was waiting for someone from Medicare to come back and talk to him. CM investigated and determined this must be regarding the IM. CM clarified with pt the purpose of the IM. No further CM needs noted at this time. Date Signed: 09/24/2018 10:22 AM Electronically Signed By:Ronna Luna
--- NOTE | 2018-09-24 10:29 | ASMTLACE ---
LACE Length of stay for Answers: 4-6 days current admission Acuity / Level of Answers: Yes Care: Did the patient have an inpatient admission? Comorbidities - select Answers: Congestive heart failure all that apply Coronary Artery Disease Other Notes: Afib # of Emergency department Answers: 0 visits in the last 6 months Score: 12 Date Signed: 09/24/2018 10:29 AM Electronically Signed By:Ronna Luna
[2018-09-24 12:19] VITALS: BP 78/52
--- NOTE | 2018-09-24 12:31 | ASDISCHSUM ---
Discharge Information Plan Status:SNF Medically Cleared to Leave:09/24/2018 Discharge Date:09/24/2018 12:21 PM CM D/C Disposition:Assisted Facility ADT D/C Disposition:Assisted Facility Projected Discharge Date:09/20/2018 11:00 AM Transportation at D/C:Wheelchair Van Discharge Delay Reason: Follow-Up Date:09/20/2018 11:00 AM Discharge Slot: Final Diagnosis:CHF, Pulm HTN Placement Information Referral Type:*Alf/SNF Referral ID:[id number] Provider Name:[facility] [address]/[facility] Address 1:[address] Address 2: City:[place] Selection Factors: State:[place] Patient Contact Information Contact Name:ESMENIKOS Relationship:Nephew Address: Work Phone: [facility]:[place] Alternate Phone: [facility]/Zip Code:[place] [address] Email: Financial Information Financial Class:Medicare Primary Plan Desc:MEDICARE INPATIENT Primary Plan Number:[id number] Secondary Plan Desc:LISAP/MDR SUPPLEMENT Secondary Plan Number:[id number] Assessment Information LACE LACE Length of stay for Answers: 4-6 days current admission Acuity / Level of Answers: Yes Care: Did the patient have an inpatient admission? Comorbidities - select Answers: Congestive heart failure all that apply Coronary Artery Disease Other Notes: Afib # of Emergency department Answers: 0 visits in the last 6 months Score: 12 Date Signed: 09/24/2018 10:29 AM Electronically Signed By:Ronna Luna [facility] CM Progress Note CM Note CM Note Notes: Reviewed chart, pt admitted from MD's office for Afib and sob. Pt lives alone in a condo but does have niece, nephew and friends that look in on him. CM spoke with pt about dc plan, PT/OT recommend SNF vs HC. Pt will consider options but wants to work with therapies a bit more, before making a decision. DC Plan: SNF vs HC Date Signed: 09/19/2018 03:16 PM Electronically Signed By:Tatiana Casas RN [facility] Progress Note CM Note CM Note Notes: CM met w/ pt and his riya niece and matty nephew. Therapies are continuing to recommend SNF. Riya does not feel comfortable w/ pt returning home. Pt has 3 flights of stairs and lives by himself in an apartment. CM provided pt and family w/ senior blue book. They would like their first choice to be [facility]. Second choice is [facility]. Referrals sent to both. Family will go tour. CM to follow. Plan: SNF Date Signed: 09/20/2018 02:42 PM Electronically Signed By:MERY Yanez [facility] Progress Note CM Note CM Note Notes: Gregory from [facility] stopped by and evaluated pt. [facility] has accepted. [facility] notified pts niece Riya (P#:[phone]) of the acceptance. CHAY spoke to Maribell at Dr. Fritz's office and notified her of what the plan will be - to d/c to SNF. CM to follow. Plan: [facility] Date Signed: 09/21/2018 12:10 PM Electronically Signed By:MERY Yanez [facility] CM Progress Note CM Note CM Note Notes: 09/23/2018 Case Management Note Reviewed chart. Updated [facility] via all scripts. Case Management d/c poc: [facility] SNF rehab Case Management to follow. Date Signed: 09/23/2018 11:37 AM Electronically Signed By:Asia Patel RN Case Management Discharge Plan Note Case Management Discharge Discharge Order Complete? Answers: Yes Patient to Obtain Answers: Other Notes: SNF Medications Transportation Arranged Answers: Other Notes: [facility] Transport will Pick (Date 09/24/2018 12:00 PM & Time) Faxed Final Orders Answers: Yes Agency/Facility Transfer Answers: Yes Report Printed & Faxed to Receiving Agency Family Notified Answers: Yes Notes: CM called niece Discharge Comments Notes: Pt to discharge to [facility]. RN given number for RN report. Pt stated he was waiting for someone from Medicare to come back and talk to him. CM investigated and determined this must be regarding the IM. CM clarified with pt the purpose of the IM. No further CM needs noted at this time. Date Signed: 09/24/2018 10:22 AM Electronically Signed By:Ronna Luna Intervention Information Intervention Type:*Incorrect Registration Date of Service:09/18/2018 05:30 PM Patient Type:Observation Staff Member:MORGAN Mckinley Courtney Hours: Discipline: Severity: Comment: Intervention Type:*IM-Signed Date of Service:09/24/2018 12:29 PM Patient Type:Inpatient Staff Member:Ronna Luna Hours: Discipline:Carrier Packer Severity: Comment:
[2018-09-24] MEDS ORDERED: WARFARIN SODIUM 2.5 MG TAB PO SCH (21:00)
--- NOTE | 2018-09-26 13:53 | GDS ---
[f rep st] DISCHARGE SUMMARY DISCHARGE DIAGNOSES: 1. Congestive heart failure. 2. Weakness. 3. Hypotension. 4. Pulmonary hypertension. 5. Atrial fibrillation. HOSPITAL COURSE: The patient is an 87-year-old male with a history of pulmonary hypertension and chr onic congestive heart failure, who was admitted for progressive weakness and shortness of breath over the previous 2 months with an increasing inability to care for himself. He was treated with low-dos e dopamine and began to feel better. An attempt was made to treat him with Entresto, but he was into lerant of this due to hypotension. His blood pressure improved on dobutamine and fluid resuscitation . His sildenafil dose was increased to better address his pulmonary hypertension. He was able to to lerate the addition of an STEPHON inhibitor as well as an increased carvedilol dose and was weaned off do butamine successfully. By the end of his hospital stay, he felt better and was stable for discharge to a [facility] facility rehab. /[id number]/MODL
== END 2018-09-24 12:21 | DRG 293 ==
LOC: F2W 12:25 → OBSVTOIN 13:37
PROVIDERS: ADMIT Internal Medicine; ATTEND Internal Medicine
PROC: 02HV33Z Insertion of Infusion Device into Superior Vena Cava, Percutaneous Approach (ICD-10-PCS; principal; 2018-09-18)
DX: I11.0 Hypertensive heart disease with heart failure (principal); I50.23 Acute on chronic systolic (congestive) heart failure; I48.91 Unspecified atrial fibrillation; I27.22 Pulmonary hypertension due to left heart disease; M19.90 Unspecified osteoarthritis, unspecified site; E29.1 Testicular hypofunction; H91.90 Unspecified hearing loss, unspecified ear; I25.10 Atherosclerotic heart disease of native coronary artery without angina pectoris; G47.30 Sleep apnea, unspecified
CPT/HCPCS: 97116-GP; 97161-GP; 97165-GO; 97530-GO; 97530-GP; 97535-GO; C1751; J1250